=== PATIENT | female | born 1955 | race Hispanic/Latino ===

== ENCOUNTER → 2023-03-24 | Outpatient (CLI) | payer OTHER ==
[~2023-03-24] MED LIST: CEPH500B PO
== END | disposition home or self-care (01) ==
LOC: SHCH 12:20
PROVIDERS: ATTEND Internal Medicine Cardiovascular Disease
DX: I51.7 Cardiomegaly (principal)
CPT/HCPCS: 93306

== ENCOUNTER 2023-05-14 05:57 | Observation (INO) | payer OTHER ==
[2023-05-11 14:28] LABS: BASOPHILS % (AUTO) 0.7 % (0.0-5.0); EOSINOPHILS % (AUTO) 3.1 % (0.0-8.0); HEMATOCRIT 43.1 % (36-48); LYMPHOCYTES % (AUTO) 35.1 % (21.0-51.0); MEAN CORPUSCULAR HEMOGLOBIN 29.9 pg (27.0-33.0); MEAN CORPUSCULAR HGB CONC 33.6 g/dL (32.0-36.0); MEAN CORPUSCULAR VOLUME 88.9 fL (79-99); MONOCYTES % (AUTO) 5.7 % (3.0-13.0); NEUTROPHILS % (AUTO) 54.8 % (40.0-77.0); PLATELET COUNT (AUTO) 265 K/uL (130-400); RED BLOOD CELL COUNT(AUTO) 4.85 MIL/uL (4.00-5.50); RED CELL DISTRIBUTION WIDTH 13.1 % (11.0-15.5); WHITE BLOOD COUNT (AUTO) 8.1 K/uL (4.8-10.8)
[2023-05-11 14:41] LABS: ALBUMIN 3.3 g/dL (3.5-5.0); CREATININE 0.9 mg/dL (0.5-1.5); CRP QUANTITATIVE 2.1 mg/L (0.00-9.0); POTASSIUM 3.4 mmol/L (3.5-5.1)
[2023-05-11 14:43] LABS: INR 0.95 (0.85-1.15); PROTHROMBIN TIME 10.4 SEC (9.6-11.6)
[2023-05-11 14:44] LABS: PARTIAL THROMBOPLASTIN TIME 26.4 SEC (26.3-35.5)
[2023-05-11 14:48] LABS: APPEARANCE,URINE CLEAR (CLEAR); BILIRUBIN,URINE NEGATIVE (NEGATIVE); COLOR,URINE LIGHT-YELLOW (YELLOW); GLUCOSE, URINE (UA) 30 mg/dL (NEGATIVE); KETONES,URINE NEGATIVE (NEGATIVE); LEUKOCYTE ESTERASE ,URINE NEGATIVE Leu/uL (NEGATIVE); NITRATE,URINE NEGATIVE (NEGATIVE); OCCULT BLOOD,URINE NEGATIVE (NEGATIVE); PROTEIN,URINE NEGATIVE (NEGATIVE); UROBILINOGEN,URINE 0.2 mg/dL (0.2-1.0)
[2023-05-11 15:05] LABS: BACTERIA,URINE RARE /HPF (None Seen); MUCUS,URINE RARE LPF (None Seen); RBC,URINE 0-1 /HPF (0-1); SQUAMOUS EPITHELIAL CELL,UR RARE /HPF (0-2)
[2023-05-11 16:13] VITALS: BP 147/73
[2023-05-14] VITALS (31 sets, daily range): BP systolic 104–166; BP diastolic 49–86
[~2023-05-14] VITALS: Ht 157.5 cm; Wt 97.5 kg
[~2023-05-14 05:57] MED LIST changes: +ACET-2079 PO; -CEPH500B PO; +CETI10TA57 PO; +INSU300I SQ; +LOSA100T59 PO; +MONT-39 PO; +ROSU20TA73 PO; +SEMA0.258 SQ
[2023-05-14] MEDS ORDERED: CEFAZOLIN SODIUM 1 GM VIAL IVPB PRN (06:00)
[2023-05-14] MEDS ORDERED: 0.9%NACL 1000ML 1,000 ML IV ONE (06:21)
[2023-05-14] MEDS ORDERED: KETOROLAC 30MG VIAL (30MG/ML) ONE (06:44)
[2023-05-14] MEDS ORDERED: ROPIVACAINE 0.5% 5MG/ML 30ML IJ ONE ×2 (06:44→07:03)
[2023-05-14] MEDS ORDERED: MIDAZOLAM HCL 1 MG/ML 2ML VIAL ONE (07:00)
[2023-05-14] MEDS ORDERED: ROCURONIUM 10MG/1ML SYR 10 MG/ML ML ONE (07:00)
[2023-05-14] MEDS ORDERED: ONDANSETRON 4MG INJ ONE ×2 (07:00→09:54)
[2023-05-14] MEDS ORDERED: FENTANYL CITRATE PF 50 MCG/1 ML 2ML VIAL ONE ×3 (07:00→10:03)
[2023-05-14] MEDS ORDERED: PROPOFOL 10 MG/ML 20ML VIAL IV ONE (07:00)
[2023-05-14] MEDS ORDERED: DEXAMETHASONE SOD PHOSPHATE 10MG/ML 1ML VIAL ONE (07:00)
[2023-05-14] MEDS ORDERED: LIDOCAINE PF 100MG/5ML (2%) SYRINGE 5ML ONE (07:00)
[2023-05-14] MEDS ORDERED: CEFAZOLIN SODIUM 2 GM VIAL IVPB ONE (07:15)
[2023-05-14] MEDS ORDERED: EPHEDRINE SULFATE 50 MG/ML AMPULE ONE (07:42)
[2023-05-14] MEDS ORDERED: TRANEXAMIC ACID 1000MG/10ML ONE (07:43)
[2023-05-14] MEDS ORDERED: MEPERIDINE-PF 25 MG/ML SYG ONE ×2 (08:35→09:55)
[2023-05-14] MEDS ORDERED: GLYCOPYRROLATE 1 MG/5 ML SYRINGE ONE (08:52)
[2023-05-14] MEDS ORDERED: NEOSTIGMINE 5MG/5ML SYR IV ONE (08:52)
[2023-05-14] MEDS ORDERED: KCL 20 MEQ ERTAB PO PRN (09:30)
[2023-05-14] MEDS ORDERED: POTASSIUM CHLORIDE 10% ELIXIR 20 MEQ/15 ML UDCUP PO PRN (09:30)
[2023-05-14] MEDS ORDERED: FERROUS FUMARATE 324 MG TABLET PO PRN (09:30)
[2023-05-14] MEDS ORDERED: CALCIUM CARB 500MG PO PRN (09:30)
[2023-05-14] MEDS ORDERED: ONDANSETRON 4MG INJ IVP PRN (09:30)
[2023-05-14] MEDS: 0.9%NACL 1000ML 1,000 ML IV SCH ×2 (09:30→15:03)
[2023-05-14] MEDS ORDERED: POTASSIUM CHLORIDE 20MEQ/100ML 100 ML IV PRN (09:30)
[2023-05-14] MEDS: KETOROLAC 15MG/ML VIAL (15MG/ML) IV SCH ×2 (10:17→17:21)
[2023-05-14] MEDS: INSULIN HUMULIN R 100 UNIT/ML 3ML SQ SCH ×3 (11:30→20:17)
[2023-05-14] MEDS: HYDROCODONE/ACETAMINOPHEN 5/325 MG TAB PO PRN ×2 (11:47→18:56)
[2023-05-14] MEDS: KETOROLAC 15MG/ML VIAL (15MG/ML) IV PRN ×2 (12:48→14:31)
[2023-05-14] MEDS: TRAMADOL HCL 50 MG TABLET PO PRN ×2 (13:36→22:12)
[2023-05-14] MEDS: GABAPENTIN 100 MG CAPSULE PO SCH ×2 (13:54→20:02)
[2023-05-14] MEDS: CEFAZOLIN SODIUM 2 GM VIAL IVPB SCH ×2 (15:02→22:12)
[2023-05-14] MEDS ORDERED: MAGNESIUM 2GM PREMIX 50ML 50 ML IV PRN (15:30)
[2023-05-14] MEDS ORDERED: CETIRIZINE HCL 5 MG TABLET PO PRN (17:30)
[2023-05-14] MEDS: CYCLOBENZAPRINE HCL 10 MG TABLET PO PRN (20:02)
[2023-05-14] MEDS: ATORVASTATIN 40 MG TABLET PO SCH (20:02)
[2023-05-14] MEDS: DOCUSATE SODIUM 100 MG CAP PO SCH (20:02)
[2023-05-14] MEDS: MONTELUKAST SODIUM 10 MG TAB PO SCH (21:00)
[2023-05-14] MEDS ORDERED: MONTELUKAST SODIUM 10 MG TAB PO SCH (21:00)
[2023-05-15] VITALS: BP 125/62
[2023-05-15] MEDS: KETOROLAC 15MG/ML VIAL (15MG/ML) IV SCH (00:12)
[2023-05-15] MEDS ORDERED: HYDROXYZINE 25 MG TABLET PO PRN (03:30)
[2023-05-15 04:00] VITALS: BP 136/66
[2023-05-15] MEDS: CYCLOBENZAPRINE HCL 10 MG TABLET PO PRN ×2 (04:19→19:53)
[2023-05-15 04:52] LABS: HEMATOCRIT 35.9 % (36-48); MEAN CORPUSCULAR HEMOGLOBIN 29.6 pg (27.0-33.0); MEAN CORPUSCULAR HGB CONC 33.4 g/dL (32.0-36.0); MEAN CORPUSCULAR VOLUME 88.4 fL (79-99); RED BLOOD CELL COUNT(AUTO) 4.06 MIL/uL (4.00-5.50)
[2023-05-15 04:59] LABS: POTASSIUM 4.9 mmol/L (3.5-5.1)
[2023-05-15] MEDS: INSULIN HUMULIN R 100 UNIT/ML 3ML SQ SCH ×4 (06:04→21:15)
[2023-05-15] MEDS: HYDROCODONE/ACETAMINOPHEN 5/325 MG TAB PO PRN ×3 (06:05→21:14)
[2023-05-15] MEDS ORDERED: KETOROLAC 15MG/ML VIAL (15MG/ML) ONE (07:18)
[2023-05-15] MEDS: KETOROLAC 15MG/ML VIAL (15MG/ML) IV PRN (07:19)
[2023-05-15 09:02] VITALS: BP 113/77
[2023-05-15] MEDS: GABAPENTIN 100 MG CAPSULE PO SCH ×3 (09:56→19:52)
[2023-05-15] MEDS: ASPIRIN 325MG TAB PO SCH (09:56)
[2023-05-15] MEDS: LOSARTAN 100 MG TABLET PO SCH (09:56)
[2023-05-15] MEDS: DOCUSATE SODIUM 100 MG CAP PO SCH ×2 (09:57→19:52)
[2023-05-15] MEDS: POLYETHYLENE GLYCOL 3350 17 GM POWD.PACK PO SCH (09:57)
[2023-05-15] MEDS: INSULIN GLARGINE 100 UNITS/ML 10 ML VIAL SQ SCH (10:05)
[2023-05-15 11:13] VITALS: BP 119/49
[2023-05-15 16:07] VITALS: BP 106/57
[2023-05-15 19:00] VITALS: BP 102/51
[2023-05-15] MEDS: MONTELUKAST SODIUM 10 MG TAB PO SCH (19:52)
[2023-05-15] MEDS: ATORVASTATIN 40 MG TABLET PO SCH (19:52)
[2023-05-16] VITALS (7 sets, daily range): BP systolic 115–146; BP diastolic 52–77
[2023-05-16] MEDS: HYDROCODONE/ACETAMINOPHEN 5/325 MG TAB PO PRN ×4 (05:26→22:48)
[2023-05-16] MEDS: INSULIN HUMULIN R 100 UNIT/ML 3ML SQ SCH ×4 (05:53→21:59)
[2023-05-16 07:29] LABS: CREATININE 0.9 mg/dL (0.5-1.5); POTASSIUM 4.4 mmol/L (3.5-5.1)
[2023-05-16] MEDS: POLYETHYLENE GLYCOL 3350 17 GM POWD.PACK PO SCH (08:46)
[2023-05-16] MEDS: GABAPENTIN 100 MG CAPSULE PO SCH ×3 (08:47→21:58)
[2023-05-16] MEDS: DOCUSATE SODIUM 100 MG CAP PO SCH ×2 (08:47→21:57)
[2023-05-16] MEDS: LOSARTAN 100 MG TABLET PO SCH (08:47)
[2023-05-16] MEDS: ASPIRIN 325MG TAB PO SCH (08:47)
[2023-05-16] MEDS: INSULIN GLARGINE 100 UNITS/ML 10 ML VIAL SQ SCH (08:51)
[2023-05-16] MEDS ORDERED: BISACODYL 10 MG SUPP.RECT RC PRN (10:00)
[2023-05-16] MEDS ORDERED: CYCLOBENZAPRINE HCL 10 MG TABLET PO ONE (10:49)
[2023-05-16] MEDS: MONTELUKAST SODIUM 10 MG TAB PO SCH (21:57)
[2023-05-16] MEDS: CYCLOBENZAPRINE HCL 10 MG TABLET PO SCH (21:57)
[2023-05-16] MEDS: ATORVASTATIN 40 MG TABLET PO SCH (21:57)
[2023-05-17] MEDS: CYCLOBENZAPRINE HCL 10 MG TABLET PO SCH ×2 (03:07→09:10)
[2023-05-17 04:53] VITALS: BP 103/52
[2023-05-17] MEDS: INSULIN HUMULIN R 100 UNIT/ML 3ML SQ SCH ×2 (06:44→11:30)
[2023-05-17] MEDS: HYDROCODONE/ACETAMINOPHEN 5/325 MG TAB PO PRN ×2 (07:34→15:43)
[2023-05-17 08:00] VITALS: BP 131/68
[2023-05-17] MEDS: DOCUSATE SODIUM 100 MG CAP PO SCH (09:06)
[2023-05-17] MEDS: POLYETHYLENE GLYCOL 3350 17 GM POWD.PACK PO SCH (09:06)
[2023-05-17] MEDS: ASPIRIN 325MG TAB PO SCH (09:06)
[2023-05-17] MEDS: LOSARTAN 100 MG TABLET PO SCH (09:07)
[2023-05-17] MEDS: GABAPENTIN 100 MG CAPSULE PO SCH ×2 (09:07→15:43)
[2023-05-17] MEDS: INSULIN GLARGINE 100 UNITS/ML 10 ML VIAL SQ SCH (09:09)
[2023-05-17] MEDS ORDERED: BISACODYL 10 MG SUPP.RECT RC PRN (09:30)
[2023-05-17] MEDS: KETOROLAC 15MG/ML VIAL (15MG/ML) IV PRN (11:33)
[2023-05-17] MEDS: TRAMADOL HCL 50 MG TABLET PO PRN (11:37)
[2023-05-17 12:00] VITALS: BP 142/72
[2023-05-17] MEDS ORDERED: HYDR-3421 PO (13:17)
[2023-05-17] MEDS ORDERED: HYDR-4060 PO (13:17)
[2023-05-17] MEDS ORDERED: ASPI-1026 PO (13:17)
[2023-05-17] MEDS ORDERED: CYCL-309 PO (13:17)
[2023-05-17] MEDS ORDERED: DOCU-116 PO (13:17)
[2023-05-17] MEDS ORDERED: GABA100C PO (13:17)
[2023-05-17 16:00] VITALS: BP 139/69
[2023-05-21] MEDS ORDERED: SEMAGLUTIDE 0.5 MG SQ SCH (09:00)
== END 2023-05-17 17:00 | disposition home health service (06) ==
LOC: DAH 05:57 → DAHIP 05:58 → DAH 05:58 → 3DH 14:05
PROVIDERS: ADMIT Student in an Organized Health Care Education/Training Program; ATTEND Student in an Organized Health Care Education/Training Program
DX: M17.11 Unilateral primary osteoarthritis, right knee (principal); Z20.822 Contact with and (suspected) exposure to COVID-19; D62 Acute posthemorrhagic anemia; M25.561 Pain in right knee; G89.18 Other acute postprocedural pain; E87.0 Hyperosmolality and hypernatremia; K59.00 Constipation, unspecified; M79.661 Pain in right lower leg; R73.9 Hyperglycemia, unspecified; Z79.899 Other long term (current) drug therapy; Z98.890 Other specified postprocedural states; Z79.4 Long term (current) use of insulin; Z79.82 Long term (current) use of aspirin
CPT/HCPCS: 97039 ×6; 82040; 80048 ×3; 85025; 85610; 85730; 87088; 84134; 86140; 87426; 81001; 36415 ×3; 87641; 27447; 96365; 96366; 96375; 64447; 82948 ×13; 73560; 97161; 96376; 85027; 97116 ×5; 97530 ×4; 93970; J1815 ×9; G0378 ×72; A4663; A4215 ×2; J3010 ×3; J0690 ×4; J3490 ×3; J1100; J2710; J7030; J2001; J2250; J2704; J2405 ×2; J1885 ×7; J2175 ×2; J2795 ×2; G0168; A4649 ×4; C1713; C1776; A6255; A5120; A4223; A4222; A4221

== ENCOUNTER → 2025-05-11 | Outpatient (CLI) | payer OTHER ==
[~2025-05-11] MED LIST changes: -ACET-2079 PO; +ASPI-1026 PO; +CYCL-309 PO; +DOCU-116 PO; +GABA100C PO; +HYDR-3421 PO; +HYDR-4060 PO; +IOHEXOL-350 75 ML VIAL IV ONE; -ROSU20TA73 PO; +ROSU20TA98 PO
--- NOTE | 2025-05-11 10:33 | HMCIMG ---
CT ABDOMEN/PELVIS W/WO CONTRAS HISTORY: Right upper quadrant palpable mass COMPARISON: None TECHNIQUE: Multiple sequential axial images of the abdomen and pelvis were obtained from the dome of the diaphragm through symphysis pubis. Patient was given 75 cc of Omnipaque through intravenous route. Oral contrast was given. FINDINGS: No pleural effusion is seen bilaterally. There is no evidence of parenchymal disease or pulmonary nodule of the visualized lower lungs. Degenerative changes of the thoracolumbar spine are present. The heart is not enlarged. Fatty replacement changes of the pancreas are seen. No bowel obstruction is seen. Liver measured 14 cm. There is mild diverticulosis. The liver, spleen, adrenal glands and pancreas are unremarkable. There is no evidence of hydronephrosis bilaterally. No evidence of renal stone is seen. Fecal material is seen in the colon. There are normal size retroperitoneal and mesenteric lymph nodes. No ascites is seen. Atherosclerotic changes are present. Pelvic sidewalls are symmetric bilaterally. Bladder is poorly distended with apparent bladder wall thickening. IMPRESSION: 1. No acute findings. CT was performed with one or more following dose reduction techniques: automated exposure control, adjustment of the mA and kv according to patient's size, or use of a iterative reconstruction technique.
== END | disposition home or self-care (01) ==
LOC: RAH 08:23
PROVIDERS: ATTEND Family Medicine
DX: K57.90 Diverticulosis of intestine, part unspecified, without perforation or abscess without bleeding (principal); K86.89 Other specified diseases of pancreas; N32.89 Other specified disorders of bladder; R19.5 Other fecal abnormalities; R10.11 Right upper quadrant pain; M47.815 Spondylosis without myelopathy or radiculopathy, thoracolumbar region; I70.90 Unspecified atherosclerosis
CPT/HCPCS: 74178; Q9967